=== PATIENT | male | born 1995 | race African-American/Black ===

== ENCOUNTER 2016-06-27 08:57 | Emergency (ER) | payer OTHER ==
[~2016-06-27 08:57] MED LIST: DICL75TA PO; HYDR-971 PO
[2016-06-27 09:00] VITALS: BP 106/54
[2016-06-27] MEDS ORDERED: IV NORMAL SALINE 1,000ML 1,000 ML ONE (09:20)
[2016-06-27] MEDS ORDERED: ONDANSETRON PF 4 MG/2 ML VIAL. ONE (09:21)
[2016-06-27] MEDS: ONDANSETRON PF 4 MG/2 ML VIAL. IV ONE (09:30)
[2016-06-27] MEDS: IV NORMAL SALINE 1,000ML 1,000 ML IV ONE (09:30)
--- NOTE | 2016-06-27 12:16 | EKG ---
[address] [address] Test Date: 2016-06-27 Test Time: 09:44:22 Pat Name: REAL SABA Department: Room: Gender: M Housing Director: : 1995 Requested By: ANNE NAILS Order Number: [id number] Reading MD: Measurements Intervals [place] Rate: 90 P: 83 [place]: 180 QRS: 71 QRSD: 88 T: 8 QT: 348 QTc: 430 Interpretive Statements SINUS RHYTHM OTHERWISE NORMAL ECG RI6.01 Unconfirmed report No previous ECG available for comparison
--- NOTE | 2016-07-01 09:25 | ED.ADGEN ---
Past History Past Medical History: No Pertinent History Past Surgical History: No Surgical History Alcohol Use: None Drug Use: None Adult General Chief Complaint Chief Complaint Vomiting diarrhea HPI HPI Patient is a 21-year-old male presents with intermittent nausea vomiting and diarrhea for the past 3 days. Reports feeling dizzy and lightheaded upon standing. Denies fever, chills but aches. Denies hematemesis or coffee-ground emesis. No blood in stool. No recent antibiotics, travel, camping. He suggested illness exposures. No prior abdominal surgeries Review of Systems Review of Systems Review symptoms as per history of present illness. All other review symptoms are negative. Current Medications Current Medications Current Medications Medications (Trade) Dose Ordered Sig/Eitan Start Time Stop Time Status Last Admin Dose Admin Ondansetron HCl (Zofran) 4 mg 1X ONCE 06/27/16 10:45 06/27/16 10:46 DC 06/27/16 09:30 4 MG Ondansetron HCl 4 mg 4 mg STK-MED ONCE 06/27/16 09:21 06/27/16 09:22 DC Sodium Chloride (Iv Sodium Chloride 0.9% 1,000ml) 1,000 ml @ 1,000 mls/hr 1X ONCE 06/27/16 10:45 06/27/16 11:44 DC 06/27/16 09:30 1,000 MLS/HR Allergies Allergies Allergies Coded Allergies Type Severity Reaction Last Updated Verified No Known Drug Allergies 12/07/14 No Physical Exam Physical Exam Constitutional: Well developed, well nourished, no acute distress, non-toxic appearance. HENT: Normocephalic, atraumatic, bilateral external ears normal, oropharynx moist. Eyes: PERRLA, EOMI, conjunctiva normal. Neck: Normal range of motion, no tenderness. Cardiovascular:Heart rate regular rhythm, no murmur. Lungs & Thorax: Bilateral breath sounds clear to auscultation. Abdomen: Bowel sounds normal, soft, no tenderness. Skin: Warm, dry. Back: No tenderness, no CVA tenderness. Extremities: No tenderness. Neurologic: Alert and oriented X 3, normal motor function, normal sensory function, no focal deficits noted. Psychologic: Affect normal, judgement normal, mood normal. Current Patient Data Vital Signs Vital Signs Date Time Temp Pulse Resp B/P Pulse Ox O2 Delivery O2 Flow Rate FiO2 06/27/16 09:00 98.0 105 18 96 Room Air EKG EKG [] Radiology/Procedures Radiology/Procedures [] Impressions: Nausea vomiting diarrhea Course & Med Decision Making Course & Med Decision Making Pertinent Labs and Imaging studies reviewed. (See chart for details) Symptoms improved with treatment will continue supportive treatment. PCP follow- up. Return precautions reviewed.] Final Impression Final Impression [1. Nausea, vomiting and diarrhea] Problems: Dragon Disclaimer Dragon Disclaimer This electronic medical record was generated, in whole or in part, using a voice recognition dictation system. ANNE NAILS DO Jul 01, 2016 09:25
== END 2016-06-27 10:43 | disposition home or self-care (01) ==
LOC: ER 08:57
DX: R11.2 Nausea with vomiting, unspecified (principal); R19.7 Diarrhea, unspecified; R42 Dizziness and giddiness
CPT/HCPCS: 93005; 96361; 96374; 99284; J2405; J7030

== ENCOUNTER 2016-07-14 15:21 | Emergency (ER) | payer OTHER ==
[~2016-07-14] VITALS: Ht 167.6 cm; Wt 105.0 kg
--- NOTE | 2016-07-14 15:55 | PHYS DOC ---
Past History Past Medical History: No Pertinent History Past Surgical History: No Surgical History Alcohol Use: None Drug Use: None Adult General Chief Complaint Chief Complaint: NAUSEA/VOMITING/DIARRHEA HPI HPI Patient is a 21 year old male who presents with complaint of nausea and difficulty with tolerating oral secretions. Patient states that his symptoms started 2 weeks ago and have progressively worsened. Patient is unsure what the root cause of his symptoms may be, however he states that it is possible he may have eaten something 2 weeks ago that could've possibly gotten caught in his esophagus. Patient denies any pain currently. Patient states that he is unable to tolerate his own oral secretions without becoming nauseous and throwing up. Patient states that he has drank water, however he states he does throw this up shortly after. Patient denies any known health problems and does not take any medications currently. Review of Systems Review of Systems Constitutional: Denies fever or chills [] Eyes: Denies change in visual acuity, redness, or eye pain [] HENT: Denies nasal congestion or sore throat [] Respiratory: Denies cough or shortness of breath [] Cardiovascular: Denies chest pain or edema [] GI: Nausea, vomiting, denies abdominal pain, bloody stools or diarrhea [] : Denies dysuria or hematuria [] Musculoskeletal: Denies back pain or joint pain [] Integument: Denies rash or skin lesions [] Neurologic: Denies headache, focal weakness or sensory changes [] Allergies Allergies Allergies Coded Allergies Type Severity Reaction Last Updated Verified No Known Drug Allergies 07/14/16 No Physical Exam Physical Exam Constitutional: Well developed, well nourished, no acute distress, non-toxic appearance, actively spitting saliva into a cup. [] HENT: Normocephalic, atraumatic, bilateral external ears normal, oropharynx moist, no oral exudates, nose normal. [] Eyes: PERRLA, EOMI, conjunctiva normal, no discharge. [] Neck: Normal range of motion, no tenderness, supple, no stridor. [] Cardiovascular:Heart rate regular rhythm, no murmur [] Lungs & Thorax: Bilateral breath sounds clear to auscultation [] Abdomen: Bowel sounds normal, soft, no tenderness, no masses, no pulsatile masses. [] Skin: Warm, dry, no erythema, no rash. [] Back: No tenderness, no CVA tenderness. [] Extremities: No tenderness, no cyanosis, no clubbing, ROM intact, no edema. [] Neurologic: Alert and oriented X 3, normal motor function, normal sensory function, no focal deficits noted. [] Current Patient Data Vital Signs Vital Signs Date Time Temp Pulse Resp B/P (MAP) Pulse Ox O2 Delivery O2 Flow Rate FiO2 07/14/16 15:25 98.1 56 20 98 Room Air EKG EKG Not performed [] Radiology/Procedures Radiology/Procedures [address] [address] IMAGING REPORT Signed PATIENT: REAL SABA ACCOUNT: [id number] : 1995 LOCATION: ER AGE: 21 SEX: M EXAM STATUS: REG ER ORD. PHYSICIAN: LACHO MONTIEL MD REASON: difficulty swallowing, rule out acute cardiopulmonary process PROCEDURE: PORTABLE CHEST 1V Indication difficulty swallowing for 2 weeks. A single view of the chest was obtained. No prior imaging of the chest is available. The mediastinum appears normal. Heart size is slightly enlarged. The lungs are clear. There is no pleural fluid or pneumothorax. The visualized bony structures appear grossly intact. IMPRESSION: No acute finding apparent in the chest DICTATED AND SIGNED BY: JODI CHOE MD DATE: 07/14/16 1628 CC: LACHO MONTIEL MD; PCP,UNKNOWN ~ [] Course & Med Decision Making Course & Med Decision Making Pertinent Labs and Imaging studies reviewed. (See chart for details) Patient was given IV glucagon, Versed, Pepcid, and Zofran as well as IV fluids. On reevaluation, patient's symptoms have improved. Patient is tolerating oral fluids with no instances of vomiting. The patient will be referred to gastroenterology for follow-up in one week for further evaluation. Patient will be discharged with Zofran, Pepcid, and Valium for any recurrent symptoms. Advised return to the emergency department for any worsening symptoms. Patient voiced understanding and in agreement with treatment plan. Dragon Disclaimer Dragon Disclaimer This chart was dictated in whole or in part using Voice Recognition software in a busy, high-work load, and often noisy Emergency Department environment. It may contain unintended and wholly unrecognized errors or omissions. Departure Departure: Impression: Primary Impression: Dysphagia Disposition: 01 HOME, SELF-CARE Condition: IMPROVED Referrals: PCP,UNKNOWN (PCP) TERRELL MONTGOMERY MD, SRINIVASA G MD Patient Instructions: Dysphagia Additional Instructions: Follow-up with the online media buyer in one week for reevaluation. Return to the emergency department for any worsening symptoms. Scripts Famotidine (PEPCID) 20 Mg Tablet 1 TAB PO BID, #20 TAB 0 Refills Prov: LACHO MONTIEL MD 07/14/16 Ondansetron (ZOFRAN ODT) 4 Mg Tab.rapdis 1 TAB SL Q8HRS Y for NAUSEA/VOMITING, #15 TAB Prov: LACHO MONTIEL MD 07/14/16 Diazepam (VALIUM) 5 Mg Tablet 5 MG PO TID Y for SEE ADMIN INSTRUCTIONS, #20 TAB Take as needed for difficulty with swallowing Prov: LACHO MONTIEL MD 07/14/16 Problem Qualifiers Primary Impression: Dysphagia Dysphagia type: other dysphagia Qualified Codes: R13.19 - Other dysphagia LACHO MONTIEL MD July 14, 2016 15:55
[2016-07-14] MEDS ORDERED: FAMOTIDINE 20 MG/2 ML VIAL IVP ONE (16:15)
[2016-07-14] MEDS ORDERED: GLUCAGON,HUMAN RECOMBINANT 1 MG KIT. IV ONE (16:15)
[2016-07-14] MEDS ORDERED: IV NORMAL SALINE 1,000ML 1,000 ML IV SCH (16:15)
[2016-07-14] MEDS ORDERED: ONDANSETRON PF 4 MG/2 ML VIAL. IV ONE (16:15)
[2016-07-14] MEDS ORDERED: MIDAZOLAM HCL 5 MG/5 ML VIAL IV ONE (16:15)
[2016-07-14 16:26] LABS: BASO # 0.1 x10^3/uL (0.0-0.2); BASO % 1 % (0-3); EOS # 0.1 x10^3/uL (0.0-0.7); EOS % 2 % (0-3); HEMATOCRIT 41.1 % (39.0-53.0); HEMOGLOBIN 12.9 g/dL (13.0-17.5); LYMPH # 2.1 x10^3/uL (1.0-4.8); LYMPH % 30 % (24-48); MEAN CORPUSCULAR HEMOGLOBIN 23 pg (25-35); MEAN CORPUSCULAR HGB CONC 31 g/dL (31-37); MEAN CORPUSCULAR VOLUME 72 fL (79-100); MONO # 0.6 x10^3/uL (0.0-1.1); MONO % 9 % (0-9); NEUT % 58 % (31-73); PLATELET COUNT 246 x10^3/uL (140-400); RED BLOOD COUNT 5.72 x10^6/uL (4.30-5.70); RED CELL DISTRIBUTION WIDTH 15.5 % (11.5-14.5); WHITE BLOOD COUNT 6.9 x10^3/uL (4.0-11.0)
--- NOTE | 2016-07-14 16:32 | RAD ---
Indication difficulty swallowing for 2 weeks. A single view of the chest was obtained. No prior imaging of the chest is available. The mediastinum appears normal. Heart size is slightly enlarged. The lungs are clear. There is no pleural fluid or pneumothorax. The visualized bony structures appear grossly intact. IMPRESSION: No acute finding apparent in the chest
[2016-07-14 16:40] LABS: ALBUMIN 4.3 g/dL (3.4-5.0); ALBUMIN/GLOBULIN RATIO 1.3 (1.0-1.7); CALCIUM 9.2 mg/dL (8.5-10.1); POTASSIUM 4.1 mmol/L (3.5-5.1); TOTAL BILIRUBIN 0.7 mg/dL (0.2-1.0); TOTAL PROTEIN 7.7 g/dL (6.4-8.2)
[2016-07-14] MEDS ORDERED: FAMO-63 PO (17:38)
[2016-07-14] MEDS ORDERED: DIAZ5TAB PO (17:38)
[2016-07-14] MEDS ORDERED: ONDA4TAB10 SL (17:38)
[2016-07-14 17:50] VITALS: BP 146/92
[2016-07-14 22:40] LABS: PLT ESTIMATE ADEQUATE (ADEQUATE)
[2016-07-14 22:41] LABS: HYPOCHROMIA MOD
[2016-07-14 22:46] LABS: MICROCYTOSIS SLIGHT; TARGET CELLS FEW
== END 2016-07-14 18:03 | disposition home or self-care (01) ==
LOC: ER 15:21
DX: R13.10 Dysphagia, unspecified (principal)
CPT/HCPCS: 36415; 71010; 80053; 83690; 85008; 85027; 96361; 96374; 96375; 99285; J1610; J2250; J2405; S0028; J7030

== ENCOUNTER 2017-01-18 11:04 | Emergency (ER) | payer OTHER ==
[~2017-01-18] VITALS: Ht 167.6 cm; Wt 114.8 kg
[~2017-01-18 11:04] MED LIST changes: +DIAZ5TAB PO; +FAMO-63 PO; +ONDA4TAB10 SL
[2017-01-18] MEDS ORDERED: ALPRAZolam 0.25 MG TABLET ONE (11:28)
--- NOTE | 2017-01-18 11:36 | ED.ADGEN ---
Past History Past Medical History: No Pertinent History Past Surgical History: No Surgical History Alcohol Use: Occasionally Drug Use: None Adult General Chief Complaint Chief Complaint "My heart's racing" HPI HPI Patient is a 21 year old male who presents with 3 days of constant sensation of "heart racing" including sensation of mild sharp pain and palpitations. Denies previous similar symptoms, denies known PMH/CAD/HTN/lung problems, denies family h/o CAD, no h/o PE/DVT, no recent surgeries/prolonged immobilization. Denies meds/otc drugs/illicit drugs, last etoh 2 weeks ago. Reports decreased appetite, inability to sleep, denies anxiety, denies h/o mental health disorder. Pt arrives with slightly elevated BP, denies known h/o HTN. No leg pain/swelling, no cough or fever. Mild nausea, no vomiting, no change in bowel movements. No exacerbating or relieving factors. Review of Systems Review of Systems Constitutional: Denies fever or chills [] Eyes: Denies change in visual acuity, redness, or eye pain [] HENT: Denies nasal congestion or sore throat [] Respiratory: Denies cough or shortness of breath [] Cardiovascular: No additional information not addressed in HPI [] GI: Denies, vomiting, bloody stools or diarrhea [] : Denies dysuria or hematuria [] Musculoskeletal: Denies back pain or joint pain [] Integument: Denies rash or skin lesions [] Neurologic: Denies headache, focal weakness or sensory changes [] All other systems were reviewed and found to be within normal limits, except as documented in this note. Family History Family History denies Current Medications Current Medications Current Medications Medications (Trade) Dose Ordered Sig/Eitan Start Time Stop Time Status Last Admin Dose Admin Alprazolam (Xanax) 0.25 mg STK-MED ONCE 01/18/17 11:28 01/18/17 11:29 DC Ondansetron HCl (Zofran Odt) 4 mg 1X ONCE 01/18/17 12:00 01/18/17 12:01 DC 01/18/17 11:53 4 MG Allergies Allergies Allergies Coded Allergies Type Severity Reaction Last Updated Verified No Known Drug Allergies 07/14/16 No Physical Exam Physical Exam Constitutional: Well developed, well nourished, no acute distress, non-toxic appearance. pressured speech HENT: Normocephalic, atraumatic, bilateral external ears normal, oropharynx moist, no oral exudates, nose normal. [] Eyes: PERRLA, EOMI, conjunctiva normal, no discharge. [] Neck: Normal range of motion, no tenderness, supple, no stridor. [] Cardiovascular:Heart rate regular with regular rhythm, no murmur [] Lungs & Thorax: Bilateral breath sounds clear to auscultation, no wheeze, crackles or rhonchi Abdomen: Bowel sounds normal, soft, no tenderness, no masses, no pulsatile masses. [] Skin: Warm, dry, no erythema, no rash. [] Back: No tenderness, no CVA tenderness. [] Extremities: No tenderness, no cyanosis, no clubbing, ROM intact, no edema. negative homens bilaterally Neurologic: Alert and oriented X 3, normal motor function, normal sensory function, no focal deficits noted. [] Psychologic: Affect normal, judgement normal, mood normal. [] Current Patient Data Vital Signs Vital Signs Date Time Temp Pulse Resp B/P (MAP) Pulse Ox O2 Delivery O2 Flow Rate FiO2 01/18/17 12:28 58 22 160/75 (103) 98 Room Air 01/18/17 11:05 99.0 Lab Results Laboratory Tests Test 01/18/17 11:32 01/18/17 12:44 White Blood Count 4.6 x10^3/uL (4.0-11.0) Red Blood Count 6.00 x10^6/uL (4.30-5.70) H Hemoglobin 13.8 g/dL (13.0-17.5) Hematocrit 42.7 % (39.0-53.0) Mean Corpuscular Volume 71 fL (79-100) L Mean Corpuscular Hemoglobin 23 pg (25-35) L Mean Corpuscular Hemoglobin Concent 32 g/dL (31-37) Red Cell Distribution Width 14.8 % (11.5-14.5) H Platelet Count 272 x10^3/uL (140-400) Neutrophils (%) (Auto) 51 % (31-73) Lymphocytes (%) (Auto) 38 % (24-48) Monocytes (%) (Auto) 10 % (0-9) H Eosinophils (%) (Auto) 2 % (0-3) Basophils (%) (Auto) 1 % (0-3) Neutrophils # (Auto) 2.3 x10^3uL (1.8-7.7) Lymphocytes # (Auto) 1.7 x10^3/uL (1.0-4.8) Monocytes # (Auto) 0.4 x10^3/uL (0.0-1.1) Eosinophils # (Auto) 0.1 x10^3/uL (0.0-0.7) Basophils # (Auto) 0.0 x10^3/uL (0.0-0.2) Platelet Estimate Adequate (ADEQUATE) Microcytosis Slight Spherocytes Occ Target Cells Occ Helmet Cells Occ POC Troponin I 0.00 ng/ml (<0.08) Lipase 54 U/L (73-393) L POC Hemoglobin 15.3 gm/dL POC Hematocrit 45 % POC Sodium 140 mmol/L (135-145) POC Potassium 3.8 mmol/L (3.5-5.0) POC Chloride 102 mmol/L (98-110) POC Total CO2 27 mmol/L (23-32) Anion Gap 15 mmol/L (6-14) H POC Blood Urea Nitrogen 13 mg/dL (8-26) POC Creatinine 1.1 mg/dL (0.5-1.4) Glucose Level 94 mg/dL (60-99) POC Ionized Calcium (Teresa) 1.19 mmol/L (1.13-1.32) EKG EKG 1206: 64 bpm, sinus, normal axis, normal intervals, no ST elevation or depression, nonischemic T waves. Interpreted by me. Radiology/Procedures Radiology/Procedures CXR:Impression: No acute radiographic abnormality is seen. Course & Med Decision Making Course & Med Decision Making Pertinent Labs and Imaging studies reviewed. (See chart for details) ekg/labs/cxr ordered. Pt stated he could get a ride and zofran odt and xanax po given. Labs, CXR, EKG unremarkable. Trop negative. Pt's PERC score is 0. I recommended that pt f/u with PCP but at this time, results do not indicate a serious problems causing his symptoms. Pt admitted the symptoms started after marriage counseling and he has been under stress. Unsure if this is causing symptoms. Denies improvement with the Xanax. Strict return precautions given. Pt stated he will get a ride home today and voiced understanding. Final Impression Final Impression Heart palpitations Anxiety - possible.[] Problems: Dragon Disclaimer Dragon Disclaimer This electronic medical record was generated, in whole or in part, using a voice recognition dictation system. DONALD RODRIGUEZ MD Jan 18, 2017 11:36
[2017-01-18] MEDS ORDERED: ALPRAZolam 0.25 MG TABLET PO ONE (11:50)
[2017-01-18 11:51] LABS: HEMOGLOBIN ISTAT 15.3 gm/dL; POTASSIUM ISTAT 3.8 mmol/L (3.5-5.0)
[2017-01-18 11:55] LABS: BASO % 1 % (0-3); EOS # 0.1 x10^3/uL (0.0-0.7); EOS % 2 % (0-3); HEMATOCRIT 42.7 % (39.0-53.0); HEMOGLOBIN 13.8 g/dL (13.0-17.5); LYMPH # 1.7 x10^3/uL (1.0-4.8); LYMPH % 38 % (24-48); MEAN CORPUSCULAR HEMOGLOBIN 23 pg (25-35); MEAN CORPUSCULAR HGB CONC 32 g/dL (31-37); MEAN CORPUSCULAR VOLUME 71 fL (79-100); MONO # 0.4 x10^3/uL (0.0-1.1); MONO % 10 % (0-9); NEUT # 2.3 x10^3uL (1.8-7.7); NEUT % 51 % (31-73); PLATELET COUNT 272 x10^3/uL (140-400); RED CELL DISTRIBUTION WIDTH 14.8 % (11.5-14.5); WHITE BLOOD COUNT 4.6 x10^3/uL (4.0-11.0)
[2017-01-18] MEDS ORDERED: ONDANSETRON ODT 4 MG TAB.RAPDIS PO ONE (12:00)
--- NOTE | 2017-01-18 12:00 | EKG ---
[address] [address] Test Date: 2017-01-18 Test Time: 12:06:40 Pat Name: REAL SABA Department: Room: Gender: M Visitor Services Representative: ALEJANDRA : 1995 Requested By: DONALD RODRIGUEZ Order Number: [id number] Reading MD: Hussein De Anda MD Measurements Intervals [place] Rate: 64 P: 36 [place]: 198 QRS: 44 QRSD: 90 T: 23 QT: 382 QTc: 398 Interpretive Statements SINUS RHYTHM Electronically Signed On 01-22-2017 10:42:10 PUPIL PERSONNEL SERVICES DIRECTOR by Hussein De Anda MD
--- NOTE | 2017-01-18 12:27 | RAD ---
2 view CXR: Clinical indications: Chest pain with shortness of breath for 3 days Comparison: July 14, 2016. Findings: No acute lung infiltrate or pleural effusion or pulmonary edema or lung mass or pneumothorax is seen. The heart size, pulmonary vasculature, mediastinum and both isidro are unremarkable. The osseous structures appear intact. Impression: No acute radiographic abnormality is seen.
[2017-01-18 12:28] VITALS: BP 160/75
[2017-01-18 13:01] LABS: PLT ESTIMATE ADEQUATE (ADEQUATE)
[2017-01-18 13:02] LABS: HELMET CELLS OCC; MICROCYTOSIS SLIGHT; SPHEROCYTES OCC; TARGET CELLS OCC
== END 2017-01-18 12:32 | disposition home or self-care (01) ==
LOC: ER 11:04
DX: R00.2 Palpitations (principal); R07.89 Other chest pain; R63.0 Anorexia
CPT/HCPCS: 36415; 71020; 80047; 83690; 84484; 85025; 93005; 99285; Q0162

== ENCOUNTER → 2017-02-26 | Outpatient (CLI) | payer OTHER ==
--- NOTE | 2017-02-26 15:50 | RAD ---
3 views left shoulder 02/26/2017 2:00 AM Indication: LEFT SHOULDER PAIN Comparison: None Findings: There is no fracture or dislocation identified. Articular surfaces are uninterrupted. Soft tissues are unremarkable. Impression: No evidence of acute osseous abnormality
== END | disposition home or self-care (01) ==
LOC: DXRAD 11:12
PROVIDERS: ATTEND Family Medicine Sports Medicine
DX: M25.512 Pain in left shoulder (principal); Z72.89 Other problems related to lifestyle
CPT/HCPCS: 73030